=== PATIENT | female | born 1960 ===

== ENCOUNTER 2021-08-19 09:30 | Inpatient (IN) | payer OTHER ==
[~2021-08-19] VITALS: Ht 157.5 cm; Wt 70.3 kg
[2021-08-19] MEDS ORDERED: LIPITOR20 MG PO (11:36)
== END 2021-08-24 09:43 | disposition home or self-care (01) | DRG 735 ==
LOC: OB/GYN 08-22 06:55 → O/R 08-22 06:55 → SURH 08-22 09:30 → OB/GYN 08-22 13:58
PROVIDERS: ADMIT Obstetrics & Gynecology Gynecologic Oncology; ATTEND Obstetrics & Gynecology Gynecologic Oncology
PROC: 0UT94ZZ Resection of Uterus, Percutaneous Endoscopic Approach (ICD-10-PCS; 2021-08-22)
PROC: 0UT74ZZ Resection of Bilateral Fallopian Tubes, Percutaneous Endoscopic Approach (ICD-10-PCS; 2021-08-22)
PROC: 0UT24ZZ Resection of Bilateral Ovaries, Percutaneous Endoscopic Approach (ICD-10-PCS; 2021-08-22)
PROC: 07TC4ZZ Resection of Pelvis Lymphatic, Percutaneous Endoscopic Approach (ICD-10-PCS; principal; 2021-08-22 13:30)
DX: C54.1 Malignant neoplasm of endometrium (principal); Z20.822 Contact with and (suspected) exposure to COVID-19